=== PATIENT | female | born 1975 | race Caucasian/White ===

== ENCOUNTER 2020-02-04 10:55 | Inpatient (IN) | payer MEDICAID, OTHER ==
[~2020-02-04] VITALS: Ht 144.8 cm; Wt 81.2 kg
[2020-02-04 12:03] LABS: BASOPHILS % 0.9 % (0.0-2.0); EOSINOPHILS % 0.4 % (0.0-5.0); HEMATOCRIT. 40.4 % (36.0-48.0); HEMOGLOBIN. 13.7 g/dL (12.0-16.0); LYMPHOCYTES % 11.7 % (20.0-50.0); MEAN CORPUSCULAR HEMOGLOBIN 28.5 pg (28.0-32.0); MEAN CORPUSCULAR VOLUME 84.3 fL (81.0-99.0); MEAN PLATELET VOLUME 7.5 fl (7.4-10.4); MONOCYTES % 8.4 % (2.0-8.0); NEUTROPHILS % 78.6 % (40.0-76.0); PLATELET 363 x1000/uL (130-400); RED BLOOD CELL COUNT 4.79 mill/uL (4.2-5.4); RED CELL DISTRIBUTION WIDTH 15.1 % (11.6-14.6)
[2020-02-04 12:12] LABS: BG BASE EXCESS -2.7 mmol/L (-2.0-2.0); BG CARBOXYHEMOGLOBIN 0.6 % (0.5-1.5); BG DEOXYHEMOGLOBIN 11.9 % (0.0-5.0); BG FRACTION INSPIRED OXYGEN 32; BG HCO3 ACT 20.2 mmol/L (22.0-26.0); BG METHEMOGLOBIN 0.2 % (0.0-1.5); BG OXYHEMOGLOBIN 87.3 % (94.0-97.0); BG PCO2 30.4 mmHg (35.0-45.0); BG PH 7.441 (7.350-7.450); BG PO2 54.2 mmHg (75.0-100.0); BG SAMPLE SITE RIGHT RADIAL; BG TOTAL HEMOGLOBIN 14.7 g/dL (12.0-18.0); BG VENT MODE NASAL CANNULA
[2020-02-04 12:13] LABS: CHLORIDE 113 mEq/L (98-107)
[2020-02-04 12:15] LABS: PROTHROMBIN TIME 10.7 sec (9.6-11.0)
[2020-02-04] MEDS ORDERED: CEFTRIAXONE 1 G PREMIX 50 ML IV ONE (12:30)
[2020-02-04] MEDS ORDERED: AZITHROMYCIN 500 MG in DEXT 5% WATER 250 ML IV ONE (12:30)
[2020-02-04] MEDS ORDERED: GUAIFENESIN 200MG/10ML SUGAR FREE UDC PO PRN (13:15)
[2020-02-04] MEDS ORDERED: DOCUSATE SODIUM 100MG CAPSULE PO PRN (13:15)
[2020-02-04] MEDS ORDERED: ACETAMINOPHEN 325MG TABLET PO PRN ×2 (13:15)
[2020-02-04] MEDS ORDERED: NITROGLYCERIN 0.4MG TABLET SL SL PRN (13:15)
[2020-02-04] MEDS ORDERED: NA PHOS,M-B/NA PHOS,DI-BA ENEMA 118ML PR PRN (13:15)
[2020-02-04] MEDS ORDERED: KETOROLAC 15MG/ML VIAL IV PRN (13:15)
[2020-02-04] MEDS ORDERED: CLONIDINE 0.1MG TABLET PO PRN (13:15)
[2020-02-04] MEDS ORDERED: MAGNESIUM/ALUMINUM HYDROXIDE/SIMETHICONE 30ML UDC PO PRN (13:15)
[2020-02-04] MEDS ORDERED: ALBUTEROL 6.7GM HFA INHALER ORI PRN (13:15)
[2020-02-04] MEDS ORDERED: ENOXAPARIN 40MG/0.4ML SYR SUBCUT SCH (15:00)
[2020-02-04] MEDS: GUAIFENESIN/DM 600MG/30MG ER TAB 12HR PO SCH (15:32)
[2020-02-04] MEDS ORDERED: ENOXAPARIN 30MG/0.3ML SYR SUBCUT SCH (16:30)
[2020-02-04] MEDS: ALBUTEROL 6.7GM HFA INHALER ORI SCH (17:55)
[2020-02-04] MEDS: DEXAMETHASONE 4MG TABLET PO SCH (18:40)
[2020-02-04] MEDS ORDERED: ZOLPIDEM TARTRATE 5MG TABLET PO PRN (21:00)
[2020-02-04 22:15] VITALS: BP 114/62
[2020-02-05] VITALS: BP 125/57
[2020-02-05] MEDS: ASCORBIC ACID 500 MG TABLET PO SCH ×3 (00:02→20:32)
[2020-02-05] MEDS: GUAIFENESIN/DM 600MG/30MG ER TAB 12HR PO SCH ×3 (00:02→20:32)
[2020-02-05] MEDS: ALBUTEROL 6.7GM HFA INHALER ORI SCH ×4 (00:10→22:30)
[2020-02-05 00:11] LABS: CREATINE KINASE 51 IU/L (26-192)
[2020-02-05 00:12] LABS: CREATINE KINASE MB FRACTION < 1.0 ng/mL (0.5-3.6)
[2020-02-05] MEDS ORDERED: ENOXAPARIN 80MG/0.8ML SYR SUBCUT SCH (06:00)
[2020-02-05 08:00] VITALS: BP 152/59
[2020-02-05] MEDS: DEXAMETHASONE 4MG TABLET PO SCH (08:54)
[2020-02-05] MEDS: ZINC SULFATE 220 MG ( 50 ) CAPSULE PO SCH (08:54)
[2020-02-05] MEDS ORDERED: CEFTRIAXONE 1 G PREMIX 50 ML IV SCH (09:00)
[2020-02-05 12:00] VITALS: BP 138/55
[2020-02-05] MEDS ORDERED: AZITHROMYCIN 500 MG in DEXT 5% WATER 250 ML IV SCH (12:00)
[2020-02-05] MEDS: AZITHROMYCIN 500 MG in DEXT 5% WATER 250 ML IV SCH (12:25)
[2020-02-05] MEDS: CEFTRIAXONE 1,000 MG in DEXTROSE 5% WATER 50 ML IV SCH (12:48)
[2020-02-05] MEDS ORDERED: CEFTRIAXONE 1,000 MG in DEXTROSE 5% WATER 50 ML IV SCH (13:00)
[2020-02-05 16:00] VITALS: BP 116/48
[2020-02-05] MEDS ORDERED: DEXAMETHASONE 4MG TABLET PO NR (16:45)
[2020-02-05] MEDS: ENOXAPARIN 80MG/0.8ML SYR SUBCUT SCH (17:05)
[2020-02-05] MEDS ORDERED: REMDESIVIR 200 MG in SODIUM CHLORIDE 0.9% 250 ML IV NR (18:00)
[2020-02-05 20:00] VITALS: BP 139/81
[2020-02-06] VITALS: BP 117/65
[2020-02-06] MEDS: ALBUTEROL 6.7GM HFA INHALER ORI SCH ×4 (03:52→22:55)
[2020-02-06 04:00] VITALS: BP 103/56
[2020-02-06] MEDS: ENOXAPARIN 80MG/0.8ML SYR SUBCUT SCH ×2 (06:59→18:47)
[2020-02-06 08:00] VITALS: BP 98/63
[2020-02-06 08:25] LABS: CHLORIDE 114 mEq/L (98-107)
[2020-02-06] MEDS: ZINC SULFATE 220 MG ( 50 ) CAPSULE PO SCH (08:50)
[2020-02-06] MEDS: ASCORBIC ACID 500 MG TABLET PO SCH ×2 (08:50→20:45)
[2020-02-06] MEDS: GUAIFENESIN/DM 600MG/30MG ER TAB 12HR PO SCH ×2 (08:50→20:45)
[2020-02-06] MEDS: DEXAMETHASONE 4MG TABLET PO SCH (08:50)
[2020-02-06] MEDS: AZITHROMYCIN 500 MG in DEXT 5% WATER 250 ML IV SCH (11:18)
[2020-02-06 12:00] VITALS: BP 100/40
[2020-02-06] MEDS: CEFTRIAXONE 1,000 MG in DEXTROSE 5% WATER 50 ML IV SCH (12:07)
[2020-02-06 16:00] VITALS: BP 108/63
[2020-02-06] MEDS: REMDESIVIR 100 MG in SODIUM CHLORIDE 0.9% 250 ML IV SCH (18:47)
[2020-02-06 20:00] VITALS: BP 128/77
[2020-02-07] VITALS: BP 119/69
[2020-02-07] MEDS: ALBUTEROL 6.7GM HFA INHALER ORI SCH ×4 (03:36→20:50)
[2020-02-07 04:00] VITALS: BP 108/5
[2020-02-07] MEDS: ENOXAPARIN 80MG/0.8ML SYR SUBCUT SCH ×2 (05:16→17:06)
[2020-02-07 06:30] LABS: CHLORIDE 114 mEq/L (98-107)
[2020-02-07 07:44] VITALS: BP 109/56
[2020-02-07] MEDS: DEXAMETHASONE 4MG TABLET PO SCH (08:38)
[2020-02-07] MEDS: GUAIFENESIN/DM 600MG/30MG ER TAB 12HR PO SCH ×2 (08:38→20:49)
[2020-02-07] MEDS: ASCORBIC ACID 500 MG TABLET PO SCH ×2 (08:38→20:49)
[2020-02-07] MEDS: ZINC SULFATE 220 MG ( 50 ) CAPSULE PO SCH (08:38)
[2020-02-07] MEDS: AZITHROMYCIN 500 MG in DEXT 5% WATER 250 ML IV SCH (11:08)
[2020-02-07 12:00] VITALS: BP 117/67
[2020-02-07] MEDS: CEFTRIAXONE 1,000 MG in DEXTROSE 5% WATER 50 ML IV SCH (12:01)
[2020-02-07 16:00] VITALS: BP 111/81
[2020-02-07] MEDS: REMDESIVIR 100 MG in SODIUM CHLORIDE 0.9% 250 ML IV SCH (17:06)
[2020-02-07 20:00] VITALS: BP 124/67
[2020-02-08 00:04] VITALS: BP 118/79
[2020-02-08 04:00] VITALS: BP 105/54
[2020-02-08] MEDS: ALBUTEROL 6.7GM HFA INHALER ORI SCH ×4 (04:45→21:49)
[2020-02-08] MEDS: ENOXAPARIN 80MG/0.8ML SYR SUBCUT SCH ×2 (05:28→17:09)
[2020-02-08 06:49] LABS: CHLORIDE 110 mEq/L (98-107)
[2020-02-08 08:01] VITALS: BP 111/55
[2020-02-08] MEDS: ZINC SULFATE 220 MG ( 50 ) CAPSULE PO SCH (08:46)
[2020-02-08] MEDS: ASCORBIC ACID 500 MG TABLET PO SCH ×2 (08:46→21:49)
[2020-02-08] MEDS: GUAIFENESIN/DM 600MG/30MG ER TAB 12HR PO SCH ×2 (08:46→21:49)
[2020-02-08] MEDS: DEXAMETHASONE 4MG TABLET PO SCH (08:46)
[2020-02-08] MEDS: AZITHROMYCIN 500 MG in DEXT 5% WATER 250 ML IV SCH (11:16)
[2020-02-08 11:24] VITALS: BP 97/50
[2020-02-08] MEDS: CEFTRIAXONE 1,000 MG in DEXTROSE 5% WATER 50 ML IV SCH (12:04)
[2020-02-08] MEDS: REMDESIVIR 100 MG in SODIUM CHLORIDE 0.9% 250 ML IV SCH (17:09)
[2020-02-08] MEDS: ONDANSETRON HCL 4MG/2ML INJ IV PRN ×2 (17:15→22:07)
[2020-02-08 17:21] VITALS: BP 101/58
[2020-02-08 20:00] VITALS: BP 91/50
[2020-02-09] VITALS (7 sets, daily range): BP systolic 100–112; BP diastolic 54–67
[2020-02-09] MEDS: ALBUTEROL 6.7GM HFA INHALER ORI SCH ×3 (04:59→16:08)
[2020-02-09] MEDS: ENOXAPARIN 80MG/0.8ML SYR SUBCUT SCH ×2 (06:30→17:57)
[2020-02-09] MEDS: ZINC SULFATE 220 MG ( 50 ) CAPSULE PO SCH (08:34)
[2020-02-09] MEDS: GUAIFENESIN/DM 600MG/30MG ER TAB 12HR PO SCH ×2 (08:34→20:20)
[2020-02-09] MEDS: ASCORBIC ACID 500 MG TABLET PO SCH ×2 (08:34→20:20)
[2020-02-09] MEDS: DEXAMETHASONE 4MG TABLET PO SCH (08:34)
[2020-02-09 09:26] LABS: BG CARBOXYHEMOGLOBIN 0.8 % (0.5-1.5); BG DEOXYHEMOGLOBIN 9.2 % (0.0-5.0); BG FRACTION INSPIRED OXYGEN 21; BG HCO3 ACT 22.6 mmol/L (22.0-26.0); BG METHEMOGLOBIN 0.3 % (0.0-1.5); BG OXYGEN SATURATION 90.7 % (92.0-98.5); BG OXYHEMOGLOBIN 89.7 % (94.0-97.0); BG PCO2 34.9 mmHg (35.0-45.0); BG SAMPLE SITE RIGHT RADIAL; BG TOTAL HEMOGLOBIN 15.8 g/dL (12.0-18.0); BG VENT MODE ROOM AIR
[2020-02-09 10:32] LABS: CHLORIDE 111 mEq/L (98-107)
[2020-02-09] MEDS: CEFTRIAXONE 1,000 MG in DEXTROSE 5% WATER 50 ML IV SCH (12:00)
[2020-02-09] MEDS ORDERED: AZITHROMYCIN 500 MG TABLET PO SCH (12:00)
[2020-02-09] MEDS: REMDESIVIR 100 MG in SODIUM CHLORIDE 0.9% 250 ML IV SCH (17:57)
[2020-02-10] VITALS: BP 108/49
[2020-02-10] MEDS: ALBUTEROL 6.7GM HFA INHALER ORI SCH ×3 (00:22→15:04)
[2020-02-10 04:00] VITALS: BP 108/57
[2020-02-10] MEDS: ENOXAPARIN 80MG/0.8ML SYR SUBCUT SCH (06:25)
[2020-02-10 08:00] VITALS: BP 107/43
[2020-02-10] MEDS: GUAIFENESIN/DM 600MG/30MG ER TAB 12HR PO SCH (09:04)
[2020-02-10] MEDS: DEXAMETHASONE 4MG TABLET PO SCH (09:04)
[2020-02-10] MEDS: ZINC SULFATE 220 MG ( 50 ) CAPSULE PO SCH (09:04)
[2020-02-10] MEDS: ASCORBIC ACID 500 MG TABLET PO SCH (09:04)
[2020-02-10 12:00] VITALS: BP 100/50
[2020-02-10 12:10] VITALS: BP 106/50
== END 2020-02-10 16:22 | disposition home or self-care (01) | DRG 720 ==
LOC: ER 10:55 → EDBEDREQ 12:22 → EDBEDREQTM 12:22 → 7WST 12:57 → EDBEDREQ 12:59 → EDBEDREQTM 12:59 → ENRESERV 20:51
PROVIDERS: ADMIT Internal Medicine; ATTEND Internal Medicine
PROC: XW033E5 Introduction of Remdesivir Anti-infective into Peripheral Vein, Percutaneous Approach, New Technology Group 5 (ICD-10-PCS; principal; 2020-02-05)
PROC: XW033E5 Introduction of Remdesivir Anti-infective into Peripheral Vein, Percutaneous Approach, New Technology Group 5 (ICD-10-PCS; 2020-02-06)
DX: A41.89 Other specified sepsis (principal); U07.1 COVID-19; J96.01 Acute respiratory failure with hypoxia; J12.89 Other viral pneumonia; D72.810 Lymphocytopenia; E11.9 Type 2 diabetes mellitus without complications; Z68.38 Body mass index [BMI] 38.0-38.9, adult; Z79.899 Other long term (current) drug therapy; E43 Unspecified severe protein-calorie malnutrition
CPT/HCPCS: 36415; 36600; 71045; 80053; 82375; 82550; 82553; 82805; 83036; 83880; 84484; 85025; 87635; 93005; 93970; 94640; 96365; 99285; J0456; J0696; J1650; J2405; J7050; J7060; J8540; Q9957